=== PATIENT | female | born 1950 | race Caucasian/White ===

== ENCOUNTER 2024-06-07 21:22 | Emergency (ER) | payer MEDICARE ==
[~2024-06-07] VITALS: Ht 165.1 cm; Wt 64.9 kg
[2024-06-07 21:41] LABS: BASO % 0.4 % (0.0-1.0); EOS # 0.1 10*3/uL (0.0-0.4); EOS % 1.2 % (1.0-4.0); HEMATOCRIT 34.7 % (37.0-47.0); MEAN CELL VOLUME 85.5 fl (81.0-99.0); MEAN CORPUSCULAR HGB 28.8 pg (27.0-31.0); MEAN CORPUSCULAR HGB CONC 33.7 g/dl (33.0-37.0); MEAN PLATELET VOLUME 10.4 fl (9.6-12.3); MONO # 0.4 10*3/uL (0.1-1.0); MONO % 7.8 % (3.0-9.0); NEUT % 60.2 % (47.0-73.0); PLATELET COUNT AUTOMATED 107 10*3/uL (130-400); RED BLOOD COUNT 4.06 10*6/uL (4.10-5.10); RED CELL DISTRI WIDTH 13.7 % (0-14.5)
[2024-06-07 22:00] LABS: BUN 10 mg/dl (9-23); CHLORIDE 100 mmol/L (98-107); ETHYL ALCOHOL 185.4 mg/dl (<3); POTASSIUM 3.5 mmol/L (3.4-5.1)
[2024-06-07] MEDS ORDERED: Thiamine 200 MG/2 ML VIAL IV ONE (22:10)
[2024-06-07] MEDS ORDERED: SODIUM CHLORIDE 0.9% 1,000 ML IV ONE (22:10)
== END 2024-06-07 23:00 | disposition home or self-care (01) ==
LOC: ED 21:22
PROVIDERS: Internal Medicine
DX: F10.129 Alcohol abuse with intoxication, unspecified (principal); D64.9 Anemia, unspecified; E87.1 Hypo-osmolality and hyponatremia; I10 Essential (primary) hypertension; Z88.5 Allergy status to narcotic agent; Y90.6 Blood alcohol level of 120-199 mg/100 ml